=== PATIENT | female | born 1985 | race Caucasian/White ===

== ENCOUNTER 2021-05-04 11:32 | Emergency (ER) | payer OTHER ==
[~2021-05-04] VITALS: Ht 154.9 cm; Wt 61.2 kg
[2021-05-04 11:40] VITALS: BP 129/86
--- NOTE | 2021-05-04 11:45 | NUR ---
35 Y/O F AMBULATED TO BED 1 WITH STADY GAIT, C/O ORAL ABSCESS ON ROOF OF MOUTH COMES AND GOES FOR THE LAST YEAR TODAY PAIN BECAME WORSE. FEELS A BUMP FORMING, -DRAINAGE, -FEVER, -CHILLS. MEDHX: ANXIETY, ASTHMA ALLERGIES: IBUPROFEN, ACETAMINOPHEN, CEPHALEXIN, HYDROCODONE (ITCHINESS AND HIVES FOR ALL ALLERGIES)
[2021-05-04] MEDS ORDERED: AMOX-999 PO (12:55)
[2021-05-04 13:10] VITALS: BP 115/82
== END 2021-05-04 13:10 | disposition home or self-care (01) ==
LOC: MED 11:32
DX: K13.79 Other lesions of oral mucosa (principal); J45.909 Unspecified asthma, uncomplicated; Z79.2 Long term (current) use of antibiotics; Z88.6 Allergy status to analgesic agent; Z88.1 Allergy status to other antibiotic agents; Z88.5 Allergy status to narcotic agent
CPT/HCPCS: 81002; 81025; 99283

== ENCOUNTER 2021-06-05 14:12 | Inpatient (IN) | payer OTHER ==
[~2021-06-05] VITALS: Ht 154.9 cm; Wt 61.7 kg
[~2021-06-05 14:12] MED LIST: AMOX-999 PO
[2021-06-05 14:18] VITALS: BP 110/57
[2021-06-05] MEDS ORDERED: methocarbamoL 500 MG TAB PO SCH (14:50)
[2021-06-05] MEDS ORDERED: METOCLOPRAMIDE 10 MG/2 ML INJ VIAL IM ONE (14:50)
[2021-06-05 16:38] LABS: BASOPHILS # (AUTO) 0.1 K/uL (0.00-0.22); BASOPHILS % (AUTO) 0.6 % (0.0-2.0); EOSINOPHILS # (AUTO) 0.1 K/uL (0-0.4); EOSINOPHILS % (AUTO) 0.8 % (0.0-4.0); HEMATOCRIT 35.8 % (36-48); HEMOGLOBIN 12.1 g/dL (12.0-16.0); LYMPHOCYTES # (AUTO) 1.9 K/uL (2.5-16.5); LYMPHOCYTES % (AUTO) 12.5 % (20.5-51.1); MEAN CORPUSCULAR HEMOGLOBIN 27 pg (27-31); MEAN CORPUSCULAR HGB CONC 34 g/dL (33-37); MEAN CORPUSCULAR VOLUME 81.3 fL (80-94); MONOCYTES # (AUTO) 1.7 K/uL (0.8-1.0); MONOCYTES % (AUTO) 11.2 % (1.7-9.3); NEUTROPHILS # (AUTO) 11.7 K/uL (1.8-7.7); NEUTROPHILS % (AUTO) 74.9 % (42.2-75.2); PLATELET COUNT (AUTO) 266 K/uL (140-450); RED BLOOD CELL COUNT(AUTO) 4.41 MIL/uL (4.20-5.40); RED CELL DISTRIBUTION WIDTH 14.6 % (11.6-13.7); WHITE BLOOD COUNT (AUTO) 15.6 K/uL (4.8-10.8)
[2021-06-05 16:56] LABS: ALBUMIN 2.8 g/dL (3.4-5.0); ANION GAP 10.8 (8-16); CARBON DIOXIDE 27.6 mmol/L (21-32); TOTAL BILIRUBIN 0.9 mg/dL (0.0-1.0)
[2021-06-05 16:59] LABS: POTASSIUM 2.4 mmol/L (3.5-5.1)
[2021-06-05] MEDS ORDERED: POTASSIUM CHLORIDE 10 MEQ TABER PO SCH (17:05)
[2021-06-05] MEDS ORDERED: POTASSIUM CHL 40 MEQ/ D5-1/2NS 1,000 ML IV ONE (17:05)
[2021-06-05] MEDS ORDERED: cefTRIAXone 2,000 MG in DEXTROSE 5% 100 ML IV ONE (17:05)
[2021-06-05] MEDS ORDERED: KETOROLAC 15 MG/ML VIAL IVP ONE (17:05)
[2021-06-05] MEDS ORDERED: KCL 20 MEQ/WATER INJ PREMIX 200 ML IV ONE (17:15)
--- NOTE | 2021-06-05 17:18 | NUR ---
PT C/O HEAD PAIN S/P FALL X3 DAYS AGO IN SHOWER WITH +LOC. PT GCS 15. C/O NAUSEA AND WEAKNESS. NSR ON MONITOR.
[2021-06-05 17:36] LABS: BARBITURATE, URINE NEGATIVE ng/ml (NEG <=200); BENZODIAZEPINE, URINE NEGATIVE ng/mL (NEG <=200); CANNABINOID, URINE NEGATIVE ng/mL (NEG <=50); COCAINE, URINE NEGATIVE ng/mL (NEG <=300); OPIATE, URINE NEGATIVE ng/mL (NEG <=2000); PHENCYCLIDINE SCREEN,URINE NEGATIVE ng/mL (NEG <=25)
[2021-06-05] MEDS ORDERED: cefTRIAXone 2,000 MG VIAL ONE (18:31)
--- NOTE | 2021-06-05 18:48 | NUR ---
COVID SWAB WALKED TO LAB
[2021-06-05] MEDS ORDERED: NACL 0.9% 1,000 ML IV SCH (19:05)
[2021-06-05] MEDS ORDERED: ONDANSETRON 4 MG/2 ML VIAL IVP PRN (19:10)
[2021-06-05] MEDS ORDERED: MORPHINE SULFATE 4 MG/ML SYR IVP PRN (19:20)
--- NOTE | 2021-06-05 19:34 | NUR ---
PT C/O PAIN TO LOWER BACK. RAISE FOOT OF BED TO TAKE PRESSURE OFF BACK. PT STATED RELIEF
--- NOTE | 2021-06-05 20:22 | NUR ---
AT TIME OF TRANSPORT TO FLOOR. PT EXPRESSES FEELINGS OF ANXIETY AND WISHES FOR SIGNIGICANT OTHER TO ACCOMANY HER TO THE FLOOR. EXPLAINED IN GREAT DETAIL VISITATION POLICY. ALTERNATIVES SUCH MEDICATION TO RELIEVE ANXIETY AND CALMING TECHNIQUES ATTEMPTED AND UNSUCCESSFUL. PT STILL WISHES TO LEAVE AMA. DR. SANDOVAL NOTIFIED.
[2021-06-05 20:30] VITALS: BP 110/76
--- NOTE | 2021-06-05 20:54 | NUR ---
@2030 - Patient does not wish to proceed with medical care recommended by . Patient given information related to possible complications, up to and including , which could occur as a result of leaving hospital at this time. Patient verbalizes understanding of risks involved leaving against medical advice. Patient has signed AMA form.
--- NOTE | 2021-06-05 21:14 | NUR ---
The patient's care was reviewed and supervised by Edie Esteban RN.
[2021-06-06] MEDS ORDERED: cefTRIAXone 2,000 MG in DEXTROSE 5% 100 ML IV SCH (09:00)
== END 2021-06-05 20:30 | disposition left against medical advice (07) | DRG 690 ==
LOC: MED 14:12 → MTU 19:05
PROVIDERS: ADMIT Hospitalist; ATTEND Hospitalist
DX: N12 Tubulo-interstitial nephritis, not specified as acute or chronic (principal); F41.9 Anxiety disorder, unspecified; E87.6 Hypokalemia; Z20.822 Contact with and (suspected) exposure to COVID-19; J45.909 Unspecified asthma, uncomplicated; Z87.442 Personal history of urinary calculi; Z88.1 Allergy status to other antibiotic agents; Z88.5 Allergy status to narcotic agent; Z88.8 Allergy status to other drugs, medicaments and biological substances
CPT/HCPCS: 36415; 71045; 80053; 80305; 83605; 83880; 84484; 85025; 87040; J0696; J1885; J2765; J3480